=== PATIENT | female | born 1935 | race Caucasian/White ===

== ENCOUNTER → 2017-06-21 | Outpatient (CLI) | payer MEDICARE | LOC: GMAJ 11:29 | PROVIDERS: ATTEND Family Medicine | DX: E03.9 Hypothyroidism, unspecified (principal) ==

== ENCOUNTER → 2018-03-02 | Outpatient (CLI) | payer MEDICARE | LOC: GMATM 12:11 | PROVIDERS: ATTEND Nurse Practitioner Family | DX: N30.00 Acute cystitis without hematuria (principal) ==

== ENCOUNTER 2018-06-11 14:35 | Observation (INO) | payer MEDICARE ==
--- NOTE | 2018-06-11 14:55 | HP ---
SUPERVISING PHYSICIAN: Bryce Parker MD CHIEF COMPLAINT: Fatigue. HISTORY OF PRESENT ILLNESS: This is an 82-year-old female who presented to her primary care physician's office today with a chief complaint of fatigue and states the fatigue is pretty severe and progressively getting worse over the last several days. She has not had any significant changes to her medications as of recent, however, she had some lab work done which showed elevation in BUN and creatinine of 15 and 2.5 respectively along with potassium 2.7. White blood cell count was normal. Medication review revealed the fact that the patient was on Benicar/HCTZ 20/12.5 and she also takes an additional 12.5 mg of HCTZ. Initially, she was going to be sent home from the office with discontinuation of the HCTZ, but once the labs resulted and showed the pretty significant hypokalemia as well as acute kidney injury, she was referred for direct admission. At time of examination, the patient is alert. She states she does not feel very good, but is in no acute distress currently. PAST MEDICAL HISTORY: 1. Hypertension. 2. Hypothyroidism. 3. Myocardial infarction in 2012. 4. Cholelithiasis. 5. Diverticulosis. 6. Gastroesophageal reflux disease. 7. Irritable bowel syndrome. PAST SURGICAL HISTORY: 1. Breast biopsy on the right which was benign. 2. Bladder suspension. 3. Coronary artery bypass graft. 4. Colonoscopy. CURRENT MEDICATIONS: 1. Omeprazole 20 mg p.o. daily. 2. Mirtazapine 15 mg at h.s. 3. Synthroid 0.025 mg 1 tablet by mouth daily. 4. Zocor 10 mg p.o. at bedtime. 5. Carvedilol 25 mg b.i.d. 6. Hydrochlorothiazide 12.5 mg by mouth daily. 7. Benicar/HCTZ 20/12.5 p.o. daily. 8. Clopidogrel 25 mg p.o. daily. 9. Dorzolamide 2% ophthalmic 1 drop to each affected eye b.i.d. 10. Latanoprost 0.005% 1 drop to each eye at h.s. 11. Folic acid 1 mg by mouth daily. ALLERGIES: ASPIRIN, LEVAQUIN, PENICILLIN. FAMILY HISTORY: Father at 60 of myocardial infarction. Mother at 65 of lung cancer. She has two sons, one of which is from myocardial infarction. SOCIAL HISTORY: The patient is , retired. She is a nondrinker, nonsmoker, no illicit drugs. REVIEW OF SYSTEMS: CONSTITUTIONAL: Positive for fatigue and malaise. No fever or chills. No recent weight loss or weight gain. HEENT: No headaches, vision changes, ear pain, nasal congestion or throat pain. RESPIRATORY: No cough, hemoptysis or pleuritic chest pain. CARDIOVASCULAR: No chest pain, palpitations or peripheral edema. GASTROINTESTINAL: No nausea, vomiting, diarrhea, constipation or abdominal pain. GENITOURINARY: No dysuria, frequency or flank pain. HEMATOLOGIC: Positive for easy bruising, but no transfusion reaction. MUSCULOSKELETAL: No back pain, joint pain or joint swelling. ENDOCRINE: No polydipsia, polyuria or polyphagia. No heat or cold intolerance. NEUROLOGIC: Positive for dizziness, but no syncope, paresthesias or seizures. PHYSICAL EXAMINATION: VITAL SIGNS: Blood pressure 96/57. Heart rate 60. Respiratory rate 20. Temperature 97.8. Oxygen saturation 97%. GENERAL: Ms. Allen is an 82-year-old female in no distress currently. HEENT: Normocephalic, atraumatic. Pupils are equal and reactive. No nasal drainage. Throat with slightly dry mucosa. NECK: Supple. Midline trachea. No jugular venous distention. CHEST: Symmetrical with equal rise and fall of the chest with inspiration and expiration. Lung sounds are clear to auscultation bilaterally. CARDIOVASCULAR: Regular rate and rhythm. Normal S1, S2. ABDOMEN: Soft, obese. Positive bowel sounds. No tenderness to palpation. No organomegaly. GENITOURINARY: Deferred. EXTREMITIES: Lower extremities with trace ankle edema. Pulses 1+. Capillary refill is less than 2 seconds. NEUROLOGIC: The patient is alert and oriented with no focal deficits. LABORATORY: Labs are as discussed in history of present illness. ASSESSMENT: 1. Acute kidney injury. 2. Dehydration. 3. Hypokalemia. 4. Hyperglycemia. 5. History of hypothyroidism. 6. History of coronary artery disease status post coronary artery bypass graft in 2014. PLAN: Given her dehydration and acute kidney injury, we will place her on continuous IV fluids for volume replacement. We will add potassium to that to replenish her potassium. I have ordered additional lab work here to include magnesium level to ensure that this is not low as well. As noted on the labs from the office, she did have a significant hyperglycemia with a glucose of 199. There is no documented history of diabetes mellitus, so I will get a hemoglobin A1c in the morning. Additionally, she has a history of hypothyroidism and I am not sure what her most recent TSH is. I will add that to the morning labs as well as vitamin B12 and vitamin D. I am going to place her on a authorizer due to the electrolyte imbalance and her history of coronary artery disease. We will place her on DVT and GI ulcer prophylaxis as well and resume her home medications once they are reconciled in the computer. #[id number] [facility]ES[facility]
[2018-06-11] MEDS ORDERED: SODIUM CHLORIDE 0.9% (FLUSH) 10 ML SYG IV PRN (15:14)
[2018-06-11] MEDS ORDERED: IV SET AND CAP CHANGE INJ INJ SCH (15:30)
[2018-06-11] MEDS: ENOXAPARIN SODIUM 30 MG/0.3 ML SYG SUBCU SCH (17:00)
[2018-06-11] MEDS: KCL 40MEQ/NS 1,000 ML IVS PRN (17:00)
[2018-06-11] MEDS: MIRTAZAPINE 15 MG TAB PO SCH (21:42)
[2018-06-11] MEDS: LATANOPROST 0.005% OPTH SOL 2.5 ML BTTL BOTH_EYES SCH (21:43)
[2018-06-11] MEDS: SIMVASTATIN 10 MG TAB PO SCH (21:43)
[2018-06-12] MEDS: KCL 40MEQ/NS 1,000 ML IVS PRN (03:08)
[2018-06-12] MEDS: OMEPRAZOLE CAP 20 MG CAP PO SCH (06:16)
[2018-06-12] MEDS: DORZOLAMIDE 2% OPHTH SOL 1 DROP BOTH_EYES SCH ×3 (09:01→21:27)
[2018-06-12] MEDS: FOLIC ACID 1 MG TAB PO SCH (09:04)
[2018-06-12] MEDS: LEVOTHYROXINE SODIUM 0.025 MG TAB PO SCH (09:04)
[2018-06-12] MEDS: CLOPIDOGREL 75 MG TAB PO SCH (09:04)
[2018-06-12] MEDS: KCL 20 MEQ/NS 1,000 ML IVS PRN ×2 (09:12→21:55)
--- NOTE | 2018-06-12 11:05 | PN ---
SUPERVISING PHYSICIAN: Bryce Parker MD DATE: 06/12/18 SUBJECTIVE: The patient feels much better today than she did yesterday. Her weakness is improved. She has been able to get up and go to the bathroom without any dizziness or weakness of note. OBJECTIVE: VITAL SIGNS: Blood pressure 124/62. Heart rate 63. Respiratory rate 17. Temperature 98.2. Oxygen saturation 96%. GENERAL: Ms. Allen is an 82-year-old female without distress. NEUROLOGIC: Alert and oriented. LUNGS: Clear to auscultation bilaterally. CARDIOVASCULAR: Regular rate and rhythm. Normal S1, S2. ABDOMEN: Soft. Positive bowel sounds. No tenderness to palpation. LABORATORY: White count 8.5, hemoglobin 11.6, hematocrit 33.9, platelet count 179. Chemistry shows sodium 133, potassium 3.3, chloride 101, CO2 25, BUN 49, creatinine 1.96, glucose 136, hemoglobin A1c 6.0, calcium 8.4. ASSESSMENT: 1. Acute kidney injury secondary to dehydration. 2. Hypokalemia. 3. Hyperglycemia. 4. History of hypothyroidism. 5. History of coronary artery disease. PLAN: She has had interval improvement of her renal function as well as her hypokalemia, however, they are not normalized. Therefore, I will continue the IV fluids as well as the fact that it will contain potassium. She does feel much better, so likely she will be able to go home tomorrow given her labs are still going the right direction. Hemoglobin A1c is 6.0, so technically she does diabetes. I would suggest some diabetic education and likely need for diet control. Her TSH is within normal limits. #[id number] [facility]
[2018-06-12] MEDS: ENOXAPARIN SODIUM 30 MG/0.3 ML SYG SUBCU SCH (14:56)
[2018-06-12] MEDS: MIRTAZAPINE 15 MG TAB PO SCH (21:27)
[2018-06-12] MEDS: LATANOPROST 0.005% OPTH SOL 2.5 ML BTTL BOTH_EYES SCH (21:27)
[2018-06-12] MEDS: SIMVASTATIN 10 MG TAB PO SCH (21:27)
[2018-06-12] MEDS ORDERED: ACETAMINOPHEN 325 MG TAB PO PRN (23:02)
[2018-06-13] MEDS: OMEPRAZOLE CAP 20 MG CAP PO SCH (06:36)
[2018-06-13] MEDS: LEVOTHYROXINE SODIUM 0.025 MG TAB PO SCH (06:36)
[2018-06-13] MEDS: KCL 20 MEQ/NS 1,000 ML IVS PRN (07:48)
[2018-06-13] MEDS: FOLIC ACID 1 MG TAB PO SCH (09:46)
[2018-06-13] MEDS: CLOPIDOGREL 75 MG TAB PO SCH (09:47)
[2018-06-13] MEDS: DORZOLAMIDE 2% OPHTH SOL 1 DROP BOTH_EYES SCH (09:50)
[2018-06-13 11:31] VITALS: O2SAT 99
--- NOTE | 2018-06-13 14:03 | DS ---
SUPERVISING PHYSICIAN: Bryce Parker MD DISCHARGE DIAGNOSIS: 1. Acute kidney injury secondary to dehydration. 2. Hypokalemia. 3. Hyperglycemia. 4. History of hypothyroidism. 5. History of coronary artery disease. HISTORY OF PRESENT ILLNESS: This is an 82-year-old female patient who presented to her primary care physician's office with a chief complaint of fairly severe fatigue that had progressively worsened over the previous several days. She had not had any significant changes to her medications, but her lab work showed elevation in BUN to 15 and creatinine of 2.5 with potassium 2.7. White blood cell count was normal. The patient was on Benicar/HCTZ and she also took an additional 12.5 mg of HCTZ. Initially, she was going to be sent home with discontinuation of the HCTZ, but due to her significant hypokalemia as well as acute kidney injury, she was referred for direct admission. HOSPITAL COURSE: She was placed in Observation and given IV fluids. She was also given potassium replacement. She was placed on Protonix as well as DVT prophylaxis. Her labs showed CBC basically within normal limits. Sodium was initially low at 130 and improved to 136 today. Potassium on admission was 2.7 and today it is 4.2 after supplementation. BUN on admission was 56 and is now 31. Her creatinine initially was 2.69. Today, it is 1.66. All other lab work was basically within normal limits. The patient's clinical picture has improved as well as she has tolerated food without problems and she will be discharged home today. DISCHARGE PLAN: The patient will be discharged home in stable condition. She is to have a followup with Dr. Gaines on 06/25/18 at 2:15 PM. At that time, it is recommended she have CBC, CMP and magnesium drawn. She will be sent home with her home medications, but her hydrochlorothiazide will be discontinued. Her Benicar will be continued. She is to increase her activity as tolerated and resume her previous medications with the exception of the hydrochlorothiazide. I have given her a new prescription for Benicar. She is to call Dr. Gaines' office or followup at the hospital for any further problems or complications. DISCHARGE MEDICATIONS: 1. Remeron. 2. Folic acid. 3. Plavix. 4. Carvedilol 5. Zocor. 6. Levothyroxine. 7. Omeprazole. 8. Xalatan ophthalmic drops. 9. Trusopt ophthalmic drops. 10. Benicar 20 mg daily. #[id number] [facility]
[2018-06-13 16:18] VITALS: BP 148/74; TEMP 98.4
== END 2018-06-13 14:25 | disposition home or self-care (01) ==
LOC: INTOOBSV 14:35 → MS 14:35
PROVIDERS: ADMIT Family Medicine; ATTEND Nurse Practitioner
DX: E87.6 Hypokalemia (principal); N17.9 Acute kidney failure, unspecified; R73.9 Hyperglycemia, unspecified; E86.0 Dehydration; E03.9 Hypothyroidism, unspecified; I25.10 Atherosclerotic heart disease of native coronary artery without angina pectoris; R53.83 Other fatigue; I10 Essential (primary) hypertension; K21.9 Gastro-esophageal reflux disease without esophagitis; I25.2 Old myocardial infarction; Z79.02 Long term (current) use of antithrombotics/antiplatelets; Z79.899 Other long term (current) drug therapy; Z88.0 Allergy status to penicillin; Z88.1 Allergy status to other antibiotic agents; Z88.6 Allergy status to analgesic agent; Z95.1 Presence of aortocoronary bypass graft
CPT/HCPCS: 96365; 96366 ×3; 96372 ×2; J1650 ×2; J3480 ×5; 80048 ×2; 80053; 83036; 36415 ×4; 85025 ×2; 83735; 84100; 84443; 82607; G0378

== ENCOUNTER → 2018-07-10 | Outpatient (CLI) | payer MEDICARE | LOC: GMAJ 10:37 | PROVIDERS: ATTEND Family Medicine | DX: E03.9 Hypothyroidism, unspecified (principal) ==

== ENCOUNTER → 2018-12-21 | Outpatient (CLI) | payer MEDICARE | LOC: GMAJ 14:45 | PROVIDERS: ATTEND Family Medicine | DX: E03.9 Hypothyroidism, unspecified (principal) ==

== ENCOUNTER → 2020-04-28 | Outpatient (CLI) | payer MEDICARE | LOC: GMAJ 14:17 | PROVIDERS: ATTEND Family Medicine | DX: E03.8 Other specified hypothyroidism (principal) ==